=== PATIENT | female | born 1935 ===

== ENCOUNTER 2022-05-27 20:02 | Emergency (ER) | payer OTHER ==
--- NOTE | 2022-05-27 20:58 | RAD REPORT ---
EXAM DESCRIPTION: RAD - Chest Single View - 05/27/2022 8:39 pm CLINICAL HISTORY: AMS COMPARISON: None TECHNIQUE: AP portable chest image was obtained 05/27/2022 8:39 pm . FINDINGS: No focal lung parenchymal process seen. Heart size and vasculature are normal range. Media stinum is distorted by rotation. No measurable pleural effusion and no pneumothorax. No acute bony ab normality seen. No acute aortic findings suspected. IMPRESSION: No acute cardiopulmonary process.
[2022-05-27 21:10] LABS: Troponin High Sensitivity 10.8 pg/mL (<58.9)
[2022-05-27 21:44] LABS: SARS-CoV-2 Antigen Rapid Res Negative (Negative)
--- NOTE | 2022-05-27 21:45 | RAD REPORT ---
EXAM DESCRIPTION: CT - Head Brain Wo Cont - 05/27/2022 9:06 pm CLINICAL HISTORY: Mental status change, unknown cause COMPARISON: No comparisons TECHNIQUE: Axial 5 mm thick images of the head were obtained without IV contrast. All CT scans are performed using dose optimization technique as appropriate and may include automated exposure control or mA/KV adjustment according to patient size. FINDINGS: No intracranial hemorrhage, mass, edema or shift of mid-line structures. No acute infarcti on changes seen. No cortical edema or sulcal effacement. Moderate severity atrophy is present. Ventri cles are in proportion. Chronic ischemic changes are relatively mild. Dense arterial tree calcificati ons are present. Mastoid air cells and visualized portions of the paranasal sinuses are clear. No acute bony findings. IMPRESSION: Negative non-contrast CT head examination for acute finding. Moderate severity cerebral and cerebellar atrophy.
[2022-05-27 21:59] LABS: Urine Blood Negative (Negative); Urine Glucose Negative (Negative); Urine Protein Negative (Negative); Urine pH 6.5 (5.0-7.0)
[2022-05-27 22:17] LABS: Urine Blood Negative (Negative); Urine Glucose Negative (Negative); Urine Protein Negative (Negative)
[2022-05-27 22:50] LABS: Absolute Lymphocytes (CBC) 1.7 K/uL (0.7-4.9); Hematocrit 40.4 % (36.0-45.0); Lymphocytes % 28.6 % (15.3-44.8); MCV 88.9 fL (80-100); MPV 8.7 fL (7.6-11.3); RBC Red Blood Cell Count 4.54 M/uL (3.86-4.86)
--- NOTE | 2022-05-28 06:21 | ER ---
Nurse's Notes [facility] Name: Mercy Montejo Age: 87 yrs Sex: Female : 1935 Arrival Date: 05/27/2022 Time: 20:17 Bed 4 Private MD: Diagnosis: Altered mental status, unspecified;Alcohol abuse with intoxication, uncomplicated Presentation: 05/27 20:17 Chief complaint: Patient states: Patient found confused around 1929, per family it is ke1 possible she had some vodka because she acts the same way after drinking vodka. Coronavirus screen: Vaccine status: Patient reports receiving the 2nd dose of the covid vaccine. Ebola Screen: No symptoms or risks identified at this time. 20:17 Method Of Arrival: EMS ke1 20:42 Initial Sepsis Screen: Does the patient meet any 2 criteria? No. Patient's initial jb4 sepsis screen is negative. Does the patient have a suspected source of infection? No. Patient's initial sepsis screen is negative. Risk Assessment: Do you want to hurt yourself or someone else? Patient reports no desire to harm self or others. Onset of symptoms was May 27, 2022. Transition of care: patient was not received from another setting of care. 20:42 Acuity: ROSEMARIE 3 jb4 Triage Assessment: 20:45 General: Appears in no apparent distress. Behavior is calm. ke1 20:45 Pain: Denies pain. ke1 Historical: - Allergies: 20:43 No Known Allergies; jb4 - Home Meds: 20:43 Synthroid 25 mcg Oral tab [Active]; donepezil 10 mg oral tab [Active]; Losartan jb4 potassium [Active]; memantine oral [Active]; - PMHx: 20:43 Dementia; HTN; Hypothyroidism; jb4 - Immunization history:: Client reports receiving the 2nd dose of the Covid vaccine. - Social history:: Smoking status: Patient denies any tobacco usage or history of. Screenin:00 Abuse screen: Denies threats or abuse. Nutritional screening: No deficits noted. ke1 Tuberculosis screening: No symptoms or risk factors identified. Fall Risk No fall in past 12 months (0 pts). Assessment: 20:30 General: Appears in no apparent distress. comfortable, Behavior is calm, cooperative, jb4 appropriate for age. Pain: Denies pain. Neuro: Level of Consciousness is awake, alert, obeys commands, Oriented to person. Cardiovascular: Patient's skin is warm and dry. Respiratory: Airway is compromised Respiratory effort is even, unlabored, Respiratory pattern is regular, symmetrical. GI: No signs and/or symptoms were reported involving the gastrointestinal system. : No signs and/or symptoms were reported regarding the genitourinary system. EENT: No signs and/or symptoms were reported regarding the EENT system. Derm: Skin is intact, Skin is pink, warm \T\ dry. Musculoskeletal: Circulation, motion, and sensation intact. Range of motion: intact in all extremities. 22:00 Reassessment: Patient appears in no apparent distress at this time. No changes from jb4 previously documented assessment. Patient and/or family updated on plan of care and expected duration. Pain level reassessed. 23:00 Reassessment: Pt is resting in bed with eyes closed, respirations are even and jb4 unlabored with no s/s of pain or distress noted. 05/28 00:00 Reassessment: Patient appears in no apparent distress at this time. No changes from jb4 previously documented assessment. Patient and/or family updated on plan of care and expected duration. Pain level reassessed. 01:00 Reassessment: Patient appears in no apparent distress at this time. No changes from jb4 previously documented assessment. Patient and/or family updated on plan of care and expected duration. Pain level reassessed. 02:00 Reassessment: Patient appears in no apparent distress at this time. No changes from jb4 previously documented assessment. Patient and/or family updated on plan of care and expected duration. Pain level reassessed. 03:16 Reassessment: No changes from previously documented assessment. ke1 04:00 Reassessment: Patient appears in no apparent distress at this time. No changes from jb4 previously documented assessment. Patient and/or family updated on plan of care and expected duration. Pain level reassessed. 05:00 Reassessment: Pt continues to rest in bed with eyes closed, respirations are even and jb4 unlabored with no s/s of pain or distress noted. 06:00 Reassessment: Patient appears in no apparent distress at this time. No changes from jb4 previously documented assessment. Patient and/or family updated on plan of care and expected duration. Pain level reassessed. 07:00 Reassessment: No changes from previously documented assessment. Patient and/or family vc1 updated on plan of care and expected duration. Pain level reassessed. Vital Signs: 05/27 20:42 BP 172 / 74; Pulse 56; Resp 19; Pulse Ox 100% on R/A; jb4 20:59 Temp 95.8(R); jb4 22:00 BP 137 / 89; Pulse 73; Resp 18; Temp 97.6(O); Pulse Ox 98% on R/A; jb4 23:41 BP 137 / 89; Pulse 52; Resp 16; Pulse Ox 96% ; Pain 0/10; ke1 12 01:03 BP 172 / 56; Pulse 64; Resp 15; Pulse Ox 97% ; ke1 02:00 BP 104 / 50; Pulse 55; Resp 15; Pulse Ox 97% on R/A; jb4 03:09 BP 104 / 50; Pulse 48; Resp 14; Temp 97.6; Pulse Ox 95% on R/A; Pain 0/10; ke1 04:35 Temp 98.1(TE); jb4 04:47 BP 156 / 68; Pulse 50; Resp 13; Pulse Ox 96% ; ke1 06:00 BP 153 / 51; Pulse 55; Resp 15; Pulse Ox 97% on R/A; jb4 12 20:59 Provider notified, johnnie emerson at the bedside, pt to CT. jb4 ED Course: 20:17 Patient arrived in ED. vc1 20:17 Jose Stevenson, DHAVAL is Primary Nurse. ke1 20:17 Castro Major MD is Attending Physician. kdr 20:41 XRAY Chest (1 view) In Process Unspecified. EDMS 20:43 Triage completed. jb4 20:45 Arm band placed on right wrist. jb4 20:45 Bed in low position. Side rails up X 1. Side rails up X2. ke1 21:08 CT Head Brain wo Cont In Process Unspecified. EDMS 22:15 Straight cath inserted, using sterile technique, 16 Fr. Specimen obtained. Returned ke1 clear yellow urine. Patient tolerated well. 05/28 06:07 ETOH Level: Send promptly at 6 AM Sent. ke1 06:49 No provider procedures requiring assistance completed. IV discontinued. ke1 Administered Medications: No medications were administered Medication: 06:49 VIS not applicable for this client. ke1 Outcome: 06:21 Discharge ordered by . kdr 07:49 Discharged to home via wheelchair, with family. vc1 07:49 Condition: improved 07:49 Discharge instructions given to family, Instructed on discharge instructions, follow up and referral plans. Demonstrated understanding of instructions, follow-up care. 07:49 Patient left the ED. vc1 Signatures: Dispatcher [employer] EDMS Castro Major MD MD kdr Bryson, James, RN RN jb4 Jeanine Muhammad RN RN vc1 Jose Stevenson RN RN ke1 Corrections: (The following items were deleted from the chart) 01:19 01:18 General: Appears in no apparent distress. Behavior is calm, ke1 ke1
--- NOTE | 2022-05-28 06:21 | EDPHYS ---
Physician Documentation [facility] Name: Mercy Montejo Age: 87 yrs Sex: Female : 1935 Arrival Date: 05/27/2022 Time: 20:17 Bed 4 Private MD: ED Physician Castro Major HPI: 05/27 21:05 This 87 yrs old Female presents to ER via EMS with complaints of confusion \\T\\ AMS. kdr 21:05 . Onset: The symptoms/episode began/occurred just prior to arrival, today, at 19:30. kdr Severity of symptoms: At their worst the symptoms were mild in the emergency department the symptoms are unchanged. It is unknown whether or not the patient has had similar symptoms in the past. The patient has not recently seen a physician, It is unknown whether or not the patient has recently seen a physician. Patient has a decades long drinking history. She also has dementia. This evening, the daughter brought her a "pickle jar" filled with vodka. When the daughter came back to visit her, she noted that she was altered but did not appreciate that she had had that much to drink from the jar. EMS was called to bring the patient to the ED for evaluation of her altered mental status. Historical: - Allergies: 20:43 No Known Allergies; jb4 - Home Meds: 20:43 Synthroid 25 mcg Oral tab [Active]; donepezil 10 mg oral tab [Active]; Losartan jb4 potassium [Active]; memantine oral [Active]; - PMHx: 20:43 Dementia; HTN; Hypothyroidism; jb4 - Immunization history:: Client reports receiving the 2nd dose of the Covid vaccine. - Social history:: Smoking status: Patient denies any tobacco usage or history of. ROS: 21:05 Constitutional: Difficult to obtain as the patient is a poor historian as very kdr somnolent Eyes: Negative for injury, pain, redness, and discharge, Neck: Negative for injury, pain, and swelling, Cardiovascular: Negative for chest pain, palpitations, and edema, Respiratory: Negative for shortness of breath, cough, wheezing, and pleuritic chest pain, Abdomen/GI: Negative for abdominal pain, nausea, vomiting, diarrhea, and constipation. 21:05 Neuro: Positive for altered mental status, weakness. Exam: 21:05 Constitutional: This is a well developed, well nourished patient who is somnolent but kdr in no acute distress. Head/Face: Normocephalic, atraumatic. Eyes: Pupils equal round and reactive to light, extra-ocular motions intact. Lids and lashes normal. Conjunctiva and sclera are non-icteric and not injected. Cornea within normal limits. Periorbital areas with no swelling, redness, or edema. Neck: Trachea midline, no thyromegaly or masses palpated, and no cervical lymphadenopathy. Supple, full range of motion without nuchal rigidity, or vertebral point tenderness. No Meningismus. Chest/axilla: Normal chest wall appearance and motion. Nontender with no deformity. No lesions are appreciated. Cardiovascular: Regular rate and rhythm with a normal S1 and S2. No gallops, murmurs, or rubs. Normal PMI, no JVD. No pulse deficits. Respiratory: Lungs have equal breath sounds bilaterally, clear to auscultation and percussion. No rales, rhonchi or wheezes noted. No increased work of breathing, no retractions or nasal flaring. Abdomen/GI: Soft, non-tender, with normal bowel sounds. No distension or tympany. No guarding or rebound. No evidence of tenderness throughout. Back: No spinal tenderness. No costovertebral tenderness. Full range of motion. Skin: Warm, dry with normal turgor. Normal color with no rashes, no lesions, and no evidence of cellulitis. Psych: Awake, alert, with orientation to person, place and time. Behavior, mood, and affect are within normal limits. 21:05 Neuro: Orientation: unable to test, Altered, Mentation: slow to respond, confused. Vital Signs: 20:42 BP 172 / 74; Pulse 56; Resp 19; Pulse Ox 100% on R/A; jb4 20:59 Temp 95.8(R); jb4 22:00 BP 137 / 89; Pulse 73; Resp 18; Temp 97.6(O); Pulse Ox 98% on R/A; jb4 23:41 BP 137 / 89; Pulse 52; Resp 16; Pulse Ox 96% ; Pain 0/10; ke1 12/10 01:03 BP 172 / 56; Pulse 64; Resp 15; Pulse Ox 97% ; ke1 02:00 BP 104 / 50; Pulse 55; Resp 15; Pulse Ox 97% on R/A; jb4 03:09 BP 104 / 50; Pulse 48; Resp 14; Temp 97.6; Pulse Ox 95% on R/A; Pain 0/10; ke1 04:35 Temp 98.1(TE); jb4 04:47 BP 156 / 68; Pulse 50; Resp 13; Pulse Ox 96% ; ke1 06:00 BP 153 / 51; Pulse 55; Resp 15; Pulse Ox 97% on R/A; jb4 12 20:59 Provider notified, johnnie emerson at the bedside, pt to CT. jb4 MDM: 21:05 Data reviewed: vital signs, nurses notes, lab test result(s), radiologic studies. kdr Counseling: I had a detailed discussion with the patient and/or guardian regarding: the historical points, exam findings, and any diagnostic results supporting the discharge/admit diagnosis, lab results, radiology results. 05/28 03:05 ED course: The patient appeared to be stabilized and aside from being intoxicated, was kdr otherwise in good condition. After discussion with the daughter, it was decided that we would observe the patient in the ED until the morning then redraw her blood alcohol and assuming she remained stable through the evening, would discharge her with the daughter in the a.m. the daughter was agreeable to this plan. 06:21 Patient medically screened. kdr 05/27 20:18 Order name: Basic Metabolic Panel; Complete Time: 21:41 kdr 05/27 20:18 Order name: CBC with Diff; Complete Time: 03:06 kdr 05/27 20:18 Order name: NT PRO-BNP; Complete Time: 21:41 kdr 05/27 20:18 Order name: Troponin HS; Complete Time: 21:41 kdr 05/27 20:18 Order name: ETOH Level; Complete Time: 21:41 kdr 05/27 21:05 Order name: SARS RAPID; Complete Time: 21:52 vc1 05/27 20:18 Order name: XRAY Chest (1 view); Complete Time: 21:41 kdr 05/27 20:18 Order name: EKG; Complete Time: 20:19 kdr 05/27 20:18 Order name: Cardiac monitoring; Complete Time: 20:45 kdr 05/27 20:18 Order name: EKG - Nurse/Tech; Complete Time: 00:27 kdr 05/27 20:18 Order name: CT Head Brain wo Cont; Complete Time: 21:52 kdr 05/27 21:59 Order name: Urine Dipstick-Ancillary; Complete Time: 22:03 EDIA 05/27 22:17 Order name: Urine Dipstick-Ancillary; Complete Time: 22:37 EDIA 05/28 03:07 Order name: ETOH Level: Send promptly at 6 AM ; Complete Time: 06:33 kdr 05/27 20:18 Order name: IV Saline Lock; Complete Time: 20:45 kdr 05/27 20:18 Order name: Labs collected and sent; Complete Time: 20:45 kdr 05/27 20:18 Order name: O2 Per Protocol; Complete Time: 20:45 kdr 05/27 20:18 Order name: O2 Sat Monitoring; Complete Time: 20:45 [facility] 05/27 21:59 Order name: Straight Cath - Urine; Complete Time: 22:14 mw2 Administered Medications: No medications were administered Disposition Summary: 05/28/22 06:21 Discharge Ordered Location: Home kdr Problem: an acute exacerbation kdr Symptoms: have improved kdr Condition: Stable kdr Diagnosis - Altered mental status, unspecified kdr - Alcohol abuse with intoxication, uncomplicated kdr Followup: kdr - With: Private Physician - When: 2 - 3 days - Reason: If symptoms return, Further diagnostic work-up, Recheck today's complaints, Continuance of care, Re-evaluation by your physician Discharge Instructions: - Discharge Summary Sheet kdr - Alcohol Intoxication kdr - Dementia kdr - Delirium kdr Forms: - Medication Reconciliation Form kdr - Thank You Letter kdr Signatures: Dispatcher [employer] [facility] Castro Major MD MD kdr Bryson, James, RN RN jb4 Clementina Adler mw2 Jose Stevenson, RN RN ke1
[2022-05-28 18:15] VITALS: TEMP 98.1
[2022-05-28 18:18] VITALS: BP 153/51; O2SAT 97
--- NOTE | 2022-05-30 15:03 | EKG ---
Test Date: 2022-05-27 Test Time: 22:44:20 Adjunct Physical Education Instructor: RV MEASUREMENT RESULTS: Intervals: Rate: 54 WI: 150 QRSD: 72 QT: 478 QTc: 453 [place]: P: 41 WI: 150 QRS: 15 T: 72 INTERPRETIVE STATEMENTS: Sinus bradycardia Otherwise normal ECG No previous ECG available for comparison Electronically Signed On 05-30-22 14:57:34 REHABILITATION PSYCHOLOGIST by Trey Grijalva
== END 2022-05-28 07:49 | disposition home or self-care (01) ==
LOC: ER 20:02
DX: F10.129 Alcohol abuse with intoxication, unspecified (principal); F03.90 Unspecified dementia, unspecified severity, without behavioral disturbance, psychotic disturbance, mood disturbance, and anxiety; I10 Essential (primary) hypertension; Z20.822 Contact with and (suspected) exposure to COVID-19
CPT/HCPCS: 36415; 51702; 70450; 71045; 80048; 80320; 81003; 83880; 84484; 85025; 87811; 93005; 99284